=== PATIENT | female | born 1980 | race American Indian/Alaskan Native ===

== ENCOUNTER 2018-04-22 15:08 | Emergency (ER) | payer OTHER ==
[2018-04-22 16:39] VITALS: BP 171/93
[2018-04-22] MEDS ORDERED: PEPCID PO ONE (18:00)
[2018-04-22] MEDS ORDERED: BENTYL IM ONE (18:00)
[2018-04-22] MEDS ORDERED: ZOFRAN ODT PO ONE (18:00)
--- NOTE | 2018-04-22 18:09 | Emergency Department Report ---
ED N/V/D HPI - General Chief complaint: Abdominal Pain Stated complaint: N/V STOMACH PAIN Time Seen by Provider: 04/22/18 17:53 Source: patient Mode of arrival: Ambulatory Limitations: No Limitations - History of Present Illness Initial comments: Patient is a 37-year-old female with a history of diabetes and gastroparesis who states she is here for a flareup of her gastroparesis. Patient has some epigastric discomfort and nausea. Patient has not vomited. Patient states symptoms for approximately 2 hours. Patient states she doesn't remember what the last thing she ate was. She denies any fevers diarrhea at this time. Pain Scale: 5 - Related Data Previous Rx's Medication Instructions Recorded Last Taken Type Amoxicillin/K Clav Tab [Augmentin 1 tab PO Q12HR #14 tab 03/19/15 Unknown Rx 875MG TAB] Benzonatate [Tessalon Perles] 100 mg PO Q8HR #15 capsule 03/19/15 Unknown Rx guaiFENesin/DEXTROMETHORPHAN 1 tab PO BID #18 tab 03/19/15 Unknown Rx [Mucinex DM ER 600-30 mg TAB] Dicyclomine [Bentyl] 10 mg PO QID #15 capsule 04/22/18 Unknown Rx Ondansetron [Zofran Odt] 4 mg PO Q8HR PRN #10 tab.rapdis 04/22/18 Unknown Rx traMADol [Ultram] 50 mg PO Q6HR PRN #10 tablet 04/22/18 Unknown Rx Allergies Allergy/AdvReac Type Severity Reaction Status Date / Time No Known Allergies Allergy Verified 03/06/14 14:26 ED Review of Systems ROS: Stated complaint: N/V STOMACH PAIN Other details as noted in HPI Comment: All other systems reviewed and negative ED Past Medical Hx - Past Medical History Hx Hypertension: Yes Additional medical history: depression - Surgical History Hx Cholecystectomy: Yes - Social History Smoking Status: Never Smoker Substance Use Type: None - Medications Home Medications: Home Medications Medication Instructions Recorded Confirmed Last Taken Type Amoxicillin/K Clav Tab [Augmentin 1 tab PO Q12HR #14 tab 03/19/15 Unknown Rx 875MG TAB] Benzonatate [Tessalon Perles] 100 mg PO Q8HR #15 capsule 03/19/15 Unknown Rx guaiFENesin/DEXTROMETHORPHAN 1 tab PO BID #18 tab 03/19/15 Unknown Rx [Mucinex DM ER 600-30 mg TAB] Dicyclomine [Bentyl] 10 mg PO QID #15 capsule 04/22/18 Unknown Rx Ondansetron [Zofran Odt] 4 mg PO Q8HR PRN #10 tab.rapdis 04/22/18 Unknown Rx traMADol [Ultram] 50 mg PO Q6HR PRN #10 tablet 04/22/18 Unknown Rx ED Physical Exam - General Limitations: No Limitations General appearance: alert, in no apparent distress - Head Head exam: Present: atraumatic, normocephalic - Eye Eye exam: Present: normal appearance - ENT ENT exam: Present: mucous membranes moist - Neck Neck exam: Present: normal inspection - Respiratory Respiratory exam: Present: normal lung sounds bilaterally. Absent: respiratory distress, wheezes, rales - Cardiovascular Cardiovascular Exam: Present: regular rate, normal rhythm. Absent: systolic murmur, diastolic murmur, rubs, gallop - GI/Abdominal GI/Abdominal exam: Present: soft, tenderness, normal bowel sounds. Absent: distended, guarding, rebound - Extremities Exam Extremities exam: Present: normal inspection - Back Exam Back exam: Present: normal inspection - Neurological Exam Neurological exam: Present: alert, oriented X3 - Psychiatric Psychiatric exam: Present: normal affect, normal mood - Skin Skin exam: Present: warm, dry, intact, normal color. Absent: rash ED Course Vital Signs 04/22/18 16:35 Temperature 98.2 F Pulse Rate 115 H Respiratory 18 Rate Blood Pressure 171/93 O2 Sat by Pulse 98 Oximetry ED Medical Decision Making - Medical Decision Making Patient is a 37-year-old female who is nauseous is having some crampy epigastric discomfort. Patient has a history gastroparesis and has similar episodes in the past. Patient does not have a gallbladder anymore. Patient was given measures symptomatically from be discharged home. Critical care attestation.: If time is entered above; I have spent that time in minutes in the direct care of this critically ill patient, excluding procedure time. ED Disposition Clinical Impression: Gastroparesis Disposition: DC-01 TO HOME OR SELFCARE Is pt being admited?: No Does the pt Need Aspirin: No Condition: Stable Instructions: Acute Nausea and Vomiting (ED) Time of Disposition: 18:16
== END 2018-04-22 19:05 | disposition home or self-care (01) ==
LOC: ED 15:08
DX: K31.84 Gastroparesis (principal); I10 Essential (primary) hypertension; F32.9 Major depressive disorder, single episode, unspecified; Z90.49 Acquired absence of other specified parts of digestive tract
CPT/HCPCS: 96372; 99282; J0500; Q0162